=== PATIENT | male | born 1995 | race Caucasian/White ===

== ENCOUNTER 2016-11-09 20:19 | Emergency (ER) | payer OTHER ==
[2016-11-09] MEDS ORDERED: LIDOCAINE 2% W/ EPINEPHRINE 20 ML VIAL INJ ONE (20:48)
[2016-11-09 21:04] VITALS: O2SAT 97
[2016-11-09] MEDS ORDERED: SULFA/TRIMETH 800/160 (DS) TAB 1 EA TAB PO ONE (21:08)
[2016-11-09] MEDS ORDERED: TETANUS,DIPHTHERIA,PERTUSSIS 1 EA SYG IM ONE (21:08)
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
[2016-11-09 21:48] VITALS: BP 138/88
== END 2016-11-09 21:48 | disposition home or self-care (01) ==
LOC: ER 20:19
DX: S01.01XA Laceration without foreign body of scalp, initial encounter (principal); Z23 Encounter for immunization; W22.8XXA Striking against or struck by other objects, initial encounter